=== PATIENT | female | born 1980 ===

== ENCOUNTER 2022-01-15 09:40 | Emergency (ER) | payer OTHER ==
[~2022-01-15] VITALS: Ht 157.5 cm; Wt 79.5 kg
[2022-01-15 09:43] VITALS: TEMP 97.8
[2022-01-15 10:32] LABS: BASO % 0.4 % (0.0-2.0); EOS % 0.7 % (0.0-4.0); GRAN # 3.8 K/mm3 (1.4-6.5); GRAN % 66.2 % (42.2-75.2); HEMATOCRIT 39.3 % (37.0-47.0); HEMOGLOBIN 13.3 g/dl (12.5-16.0); LYMPH # 1.4 K/mm3 (1.2-3.4); LYMPH % 24.1 % (20.0-51.0); MEAN CELL VOLUME 94 fl (80.0-100.0); MEAN CORPUSCULAR HEMOGLOBIN 32 pg (27-31); MEAN CORPUSCULAR HGB CONC 34 g/dl (33.0-37.0); MEAN PLATELET VOLUME 9.9 fl (7.4-10.4); MONO # 0.5 K/mm3 (0.1-0.6); MONO % 8.4 % (1.7-9.3); PLATELET COUNT 181 K/mm3 (130-400); RED BLOOD COUNT 4.18 M/mm3 (4.10-5.30); REDCELL DISTRIBUTION WIDTH-CV 12.3 % (11.5-14.5)
[2022-01-15 10:44] LABS: ALBUMIN 4.1 gm/dL (3.5-5.0); BILIRUBIN,TOTAL 0.8 mg/dL (0.2-1.2); CALCIUM 8.9 mg/dL (8.4-10.2); CREATININE, serum 0.72 mg/dL (0.57-1.11); TOTAL PROTEIN 6.3 gm/dL (6.2-8.1)
[2022-01-15] MEDS ORDERED: FLEXERIL 1010 MG/TAB PO (11:11)
[2022-01-15 12:08] VITALS: BP 100/55; PULSE 60
== END 2022-01-15 11:55 | disposition home or self-care (01) ==
LOC: COL.ER 09:40
PROVIDERS: Physician Assistant
DX: M25.552 Pain in left hip (principal); M62.830 Muscle spasm of back; M79.662 Pain in left lower leg; V83.9XXA Unspecified occupant of special industrial vehicle injured in nontraffic accident, initial encounter; Y99.0 Civilian activity done for income or pay
CPT/HCPCS: J7030